=== PATIENT | female | born 2000 ===

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

== ENCOUNTER 2019-01-12 19:25 | Emergency (ER) | payer OTHER ==
[2019-01-12 19:32] VITALS: BP 115/76; PULSE 81; TEMP 98.3; BMI 19.8
--- NOTE | 2019-01-12 19:38 | PDOC ---
History of Present Illness - General Chief Complaint: Pain Stated Complaint: PAIN H/A, ABD, MUSCLES Time Seen by Provider: 01/12/19 19:29 History Source: Patient Exam Limitations: No Limitations - History of Present Illness Initial Comments: Francheska Salazar is a 18 yo F w no sig pmh who presents to the [place] [facility] with multiple complaints including left shoulder pain, left eye swelling, neck pain, and lower abdominal pain. Patient states her left eye has been midlyl swollen for the past two days. She thinks this is related to her lifting heavy weights at the gym 3 days ago. She also states something is swollen behind her left ear. She denies any discharge from her ear or her eye. The patient also states she has been in the [place] frequently and is worried that she might have lyme disease. Lastly, she endorses lower abdominal pain which is worst in the suprapubic and LLQ regions. She states this pain worsens when she runs or when she eats food. She denies radiation of the pain to her groin or back. Patient denies fevers, chills, dysuria, frequency, urgency, headache, neck pain , SOB, difficulty breathing, abnormal vaginal discharge, or hx of STD's LMP: 3 years ago. Patient takes OCP which prevents her from getting periods. - Patient is sexually active with 1 male partner and does not use condoms for protection. She had STD tests performed in May which she states were negative. PCP: Dr. Robbins Allergies: NKA, NKDA Social Hx: Denies smoking, drinking, or other substance usage. PSH: None reported Past History - Past Medical History Allergies/Adverse Reactions: Allergies Allergy/AdvReac Type Severity Reaction Status Date / Time No Known Allergies Allergy Verified 01/25/17 21:23 Home Medications: Ambulatory Orders Norethindrone-E.estradiol-Iron [Ogertdgg-Wnvzuy-Vkut 1-0.02 mg] 1 each PO DAILY 01/12/19 COPD: No - Immunization History Immunization Up to Date: Yes - Suicide/Smoking/Psychosocial Hx Smoking History: Never smoked Hx Alcohol Use: No Drug/Substance Use Hx: No Substance Use Type: None Review of Systems - Review of Systems Able to Perform ROS?: Yes Comments:: CONSTITUTIONAL: Absent: fever, chills, diaphoresis, generalized weakness, malaise, loss of appetite HEENT: Present: Eye swelling Absent: rhinorrhea, nasal congestion, throat pain, throat swelling, difficulty swallowing, mouth swelling, ear pain, eye pain, visual Changes CARDIOVASCULAR: Absent: chest pain, syncope, palpitations, irregular heart rate, lightheadedness , peripheral edema RESPIRATORY: Absent: cough, shortness of breath, dyspnea with exertion, orthopnea, wheezing, stridor, hemoptysis GASTROINTESTINAL: Present: Abdominal pain Absent: abdominal distension, nausea, vomiting, diarrhea, constipation, melena, hematochezia GENITOURINARY: Absent: dysuria, frequency, urgency, hesitancy, hematuria, flank pain, genital pain MUSCULOSKELETAL: Absent: myalgia, arthralgia, joint swelling SKIN: Absent: rash, itching, pallor HEMATOLOGIC/IMMUNOLOGIC: Absent: easy bleeding, easy bruising, lymphadenopathy, frequent infections ENDOCRINE: Absent: unexplained weight gain, unexplained weight loss, heat intolerance, cold intolerance NEUROLOGIC: Absent: headache, focal weakness or paresthesias, dizziness, unsteady gait, seizure, mental status changes, bladder or bowel incontinence PSYCHIATRIC: Absent: anxiety, depression, suicidal or homicidal ideation, hallucinations. *Physical Exam - Vital Signs Last Vital Signs Temp Pulse Resp BP Pulse Ox 98.3 F 81 16 115/76 100 01/12/19 19:26 01/12/19 19:26 01/12/19 19:26 01/12/19 19:26 01/12/19 19:26 - Physical Exam Comments: GENERAL: Well developed, well nourished. Awake and alert. No acute distress. HEENT: Normocephalic, atraumatic. PERRLA, EOMI. No conjunctival pallor. Sclera are non- icteric. Moist mucous membranes. Oropharynx is clear. NECK: There are multiple inflamed lymph nodes bilaterally in the patient's neck. Supple. Full ROM. No JVD. No thyromegaly. CARDIOVASCULAR: Regular rate and rhythm. No murmurs, rubs, or gallops. Distal pulses are 2+ and symmetric. PULMONARY: No evidence of respiratory distress. Lungs clear to auscultation bilaterally. No wheezing, rales or rhonchi. ABDOMINAL: There is suprapubic and LLQ TTP. Abdomen is still soft and non-distended. No rebound or guarding. No organomegaly. Normoactive bowel sounds. MUSCULOSKELETAL Normal range of motion at all joints. No bony deformities or tenderness. No CVA tenderness. EXTREMITIES: No cyanosis. No clubbing. No edema. No calf tenderness. SKIN: Warm and dry. Normal capillary refill. No rashes. No jaundice. NEUROLOGICAL: Alert, awake, appropriate. Cranial nerves 2-12 intact. No deficits to light touch in face, upper extremities and lower extremities. No motor deficits in the in face, upper extremities and lower extremities. Normal speech. Gait is normal without ataxia. PSYCHIATRIC: Cooperative. Good eye contact. Appropriate mood and affect. Female Pelvic Exam: positive: normal external exam, cervical os closed, normal adnexa, normal size ovaries, uterus. negative: CMT, discharge, lesions, Bartholin mass, Scalene Gland, adnexal tenderness, vaginal bleeding ED Treatment Course - LABORATORY CBC & Chemistry Diagram: 01/12/19 20:05 01/12/19 20:05 - RADIOLOGY Radiograph Interpretation: TVUS: HISTORY PROVIDED: Pelvic pain. Real time examination of the pelvis utilizing both the transabdominal and transvaginal probes demonstrates the following: The uterus is normal in size measuring 5.3 x 3.7 x 2.3 cm. No uterine masses are seen. A normal appearing endometrium of 1.3 mm thickness is identified. The right ovary is normal in size and texture with arterial flow documented to the ovary. Left ovary could not be identified. There is no evidence of adnexal masses. Free fluid is identified within the cul-de-sac and about the left adnexa. IMPRESSION: Free pelvic fluid, otherwise normal pelvic sonogram. Please see above discussion Medical Decision Making - Medical Decision Making Francheska Salazar is a 18 yo F w no sig pmh who presents to the [facility] ER with multiple complaints including left shoulder pain, left eye swelling, neck pain, and lower abdominal pain. Patient states her left eye has been midlyl swollen for the past two days. She thinks this is related to her lifting heavy weights at the gym 3 days ago. She also states something is swollen behind her left ear. She denies any discharge from her ear or her eye. The patient also states she has been in the [place] frequently and is worried that she might have lyme disease. Lastly, she endorses lower abdominal pain which is worst in the suprapubic and LLQ regions. She states this pain worsens when she runs or when she eats food. She denies radiation of the pain to her groin or back. Patient denies fevers, chills, dysuria, frequency, urgency, headache, neck pain , SOB, difficulty breathing, abnormal vaginal discharge, or hx of STD's Vital Signs Temp Pulse Resp BP Pulse Ox 98.3 F 81 16 115/76 100 01/12/19 19:26 01/12/19 19:26 01/12/19 19:26 01/12/19 19:26 01/12/19 19:26 DDx IBNLT: viral syndrome, mono, lyme disease, ehrlichia, babesiosis, , ovarian cyst vs torsion Plan: Labs, Urine, IV hydration, IV hydration, analgesia, re-assess. Labs: Leukocytosis with monocyte pre-dominance. Elevated LFT's. Urine: Trace ketonuria TVUS: Real time examination of the pelvis utilizing both the transabdominal and transvaginal probes demonstrates the following: The uterus is normal in size measuring 5.3 x 3.7 x 2.3 cm. No uterine masses are seen. A normal appearing endometrium of 1.3 mm thickness is identified. The right ovary is normal in size and texture with arterial flow documented to the ovary. Left ovary could not be identified. There is no evidence of adnexal masses. Free fluid is identified within the cul-de-sac and about the left adnexa. IMPRESSION: Free pelvic fluid, otherwise normal pelvic sonogram. Please see above discussion Re-assessment: Patient feels better after analgesia and IV hydration. She no longer has any acute distress and requests to be discharged. Disposition: Home with call back regarding test results. *DC/Admit/Observation/Transfer Diagnosis at time of Disposition: Viral syndrome, Mononucleosis, infectious, with hepatitis, Mononucleosis syndrome - Discharge Dispostion Disposition: HOME Condition at time of disposition: Improved Decision to Admit order: No - Referrals Referrals: Dheeraj Robbins MD [Primary Care Provider] - - Patient Instructions Printed Discharge Instructions: Mononucleosis, Lyme Disease Test, [place] Spot Test, DI for Lyme Disease Additional Instructions: You came into the ER with multiple complaints suspicious for some type of infection. We sent multiple blood tests which will take 4 to 5 days to result. You will get a call back once the results are in. Please make sure to call back the ER in 5 days from now if you have not heard from us. Please read the attached handouts about mononucleosis and lyme disease. Do your best not to engage in any contact sports. Come back to the ER immediately if your pain worsens, you get a high fever, start vomiting, or have any other new or worsening concerns. Thank you for coming to the [facility] ER. We hope you feel better soon! Print Language: MALAY - Post Discharge Activity
[2019-01-12] MEDS ORDERED: SODIUM CHLORIDE 1,000 ML IV STA (19:43)
[2019-01-12] MEDS ORDERED: ACETAMINOPHEN 325 MG TABLET (FP) PO ONE (19:46)
[2019-01-12] MEDS ORDERED: ACETAMINOPHEN 325 MG TABLET (FP) ONE (19:53)
[2019-01-12 20:18] LABS: HEMATOCRIT 39.3 % (32.4-45.2); HEMOGLOBIN 13.3 GM/dl (10.7-15.3); MCH 31.3 pg (25.7-33.7); MCHC 33.8 g/dl (32.0-36.0); MEAN CELL VOLUME 92.7 fl (80-96); MEAN PLT VOLUME 9.9 fl (7.5-11.1); PLATELET COUNT 182 K/MM3 (134-434); RBC 4.24 M/mm3 (3.60-5.2); RDW 11.6 % (11.6-15.6); WHITE BLOOD COUNT 13.8 K/mm3 (4.0-10.8)
[2019-01-12 20:28] LABS: PH,URINE 5.5 (4.5-8); URINE APPEARANCE SL CLOUDY; URINE BILIRUBIN 1+ (NEGATIVE); URINE COLOR YELLOW; URINE GLUCOSE (UA) NEGATIVE (NEGATIVE); URINE KETONE TRACE (NEGATIVE); URINE NITRITE NEGATIVE (NEGATIVE); URINE PROTEIN TRACE (NEGATIVE); URINE UROBILINOGEN 0.2 (0.2-1.0)
[2019-01-12 20:29] LABS: URINE LEUK ESTERASE NEGATIVE (NEGATIVE)
[2019-01-12 20:30] LABS: EPI CELLS FEW /HPF; URINE BACTERIA FEW /hpf (NEGATIVE)
[2019-01-12 20:32] LABS: ALBUMIN 3.6 g/dl (3.4-5.0); CALCIUM 8.8 mg/dl (8.5-10); CREATININE 0.7 mg/dl (0.55-1.3); POTASSIUM 3.7 mmol/L (3.5-5.1); TOT PROT 7.4 g/dl (6.4-8.2)
[2019-01-12 20:48] LABS: PLATELET ESTIMATE ADEQUATE
== END 2019-01-12 22:00 | disposition home or self-care (01) ==
LOC: FER 19:25
PROC: 3E0337Z Introduction of Electrolytic and Water Balance Substance into Peripheral Vein, Percutaneous Approach (ICD-10-PCS; principal; 2019-01-12)
DX: B27.99 Infectious mononucleosis, unspecified with other complication (principal); K75.9 Inflammatory liver disease, unspecified; B34.9 Viral infection, unspecified
CPT/HCPCS: 36415; 76830-TC; 80053; 81003; 83690; 84703; 85025; 86308; 86618; 86666; 86753; 87086; 99283-25; J7030

== ENCOUNTER 2019-01-13 14:10 | Emergency (ER) | payer OTHER ==
[2019-01-13 14:25] VITALS: BMI 20.7
--- NOTE | 2019-01-13 14:43 | PDOC ---
History of Present Illness - General Chief Complaint: Pain Stated Complaint: abdominal pain Time Seen by Provider: 01/13/19 14:36 History Source: Patient Exam Limitations: No Limitations - History of Present Illness Initial Comments: 01/13/19 14:37 18YOF without PMH who returns to the ED c/o LLQ and suprapubic abdominal pain. Pain is worse when she inhales deeply. She was seen in the ED yesterday with the same pain, had negative laboratory workup except for leukocytosis and monocytosis, MonoSpot was negative, and TVUS showing free pelvic fluid but otherwise wnl. She denies f/c/n/v, dysuria, frequency, urgency, hematuria, abnormal discharge, or h/o STI. LMP was about 3 years ago (she takes OCP that stopped her menstruation). Past History - Past Medical History Allergies/Adverse Reactions: Allergies Allergy/AdvReac Type Severity Reaction Status Date / Time No Known Allergies Allergy Verified 01/13/19 14:19 Home Medications: Ambulatory Orders Norethindrone-E.estradiol-Iron [Miuarbza-Urwibe-Asxk 1-0.02 mg] 1 each PO DAILY 01/12/19 COPD: No - Immunization History Immunization Up to Date: Yes - Suicide/Smoking/Psychosocial Hx Smoking History: Never smoked Hx Alcohol Use: No Drug/Substance Use Hx: No Substance Use Type: None Review of Systems - Review of Systems Able to Perform ROS?: Yes Comments:: 01/13/19 15:03 GEN: no fever, chills, malaise, generalized weakness, or weight change HEENT: no ear pain, sore throat, vision change, or eye pain CV: no chest pain, palpitations, lightheadedness, syncope, or edema RESP: no cough, wheezing, or SOB GI: abdominal pain, diarrhea, constipation, no nausea, vomiting, or white/black/ bloody stool : no dysuria, hematuria, incontinence, retention, bleeding, or discharge MSK: no neck/back pain, muscle weakness/pain, or joint swelling/pain NEURO: no headache, seizure, vertigo, numbness, tingling, or focal weakness PSYCH: no substance use, no behavior change SKIN: no jaundice, no rash ROS otherwise negative except as noted in HPI *Physical Exam - Vital Signs Last Vital Signs Temp Pulse Resp BP Pulse Ox 98 F 63 17 112/53 L 100 01/13/19 14:10 01/13/19 14:10 01/13/19 14:10 01/13/19 14:10 01/13/19 14:10 - Physical Exam Comments: 01/13/19 15:04 GENERAL: nontoxic-appearing, initially standing for H&P, A/Ox4, no distress, answers questions appropriately HEENT: PERRLA, EOMI, moist mucous membranes NECK/BACK: no midline ttp, no spinal stepoff or deformity, no hematoma, full ROM , neck supple CARDIOVASCULAR: regular rate/rhythm, normal S1S2, no MGR, strong peripheral pulses, capillary refill <2 seconds, extremities wwp, no edema LUNGS/RESPIRATORY: no respiratory distress, CTAB GI/ABDOMEN: symmetric [id number], normoactive BS, soft, mild epigastric and moderate left-sided and suprapubic ttp, no midline pulsatile masses : no CVA tenderness EXTREMITIES: no muscle atrophy, no acute deformity SKIN: warm and dry, no pallor, no jaundice, no rash, no bruising, no skin breakdown, no cuts, no lesions NEUROLOGICAL: GCS 15, CN II-XII grossly intact, 5/5 strength proximally and distally, no facial droop ED Treatment Course - LABORATORY CBC & Chemistry Diagram: 01/13/19 16:10 01/13/19 16:10 Medical Decision Making - Medical Decision Making 01/13/19 15:09 Adult female Pt p/w left-sided abdominal pain. VS: Exam: As noted in Physical Exam section. DDX IBNLT: UTI/pyelonephritis, diverticulitis wwo abscess or perforation, colitis, ovarian torsion, PID, TOA, ovarian cyst, malignancy, hernia, AAA/AD, pancreatitis, appendicitis, gastritis, PUD, ACS, renal colic, SBO, bowel ischemia, bowel perforation, cholecystitis, mesenteric adenitis, musculoskeletal , constipation, etc. W/U ordered: CBCD CMP UA UCx GC/Chlamydia/Trich MAGGIE US TX ordered: IVF, Ofirmev Unlikely UTI/pyelonephritis as Pt has no dysuria, strange colors/smells, no h/o recurrent UTI. Unlikely diverticulitis as Pt has no known h/o diverticulosis/diverticulitis. Unlikely colitis as clinically Pts abdomen is not distended/no ascites, no fever, other VS wnl. Unlikely ovarian torsion as Pt has no adnexal tenderness on bimanual exam, no known h/o ovarian cyst >5 cm. Unlikely PID, TOA as Pt denies h/o STIs, no report of abnormal discharge no adnexal tenderness, VS are wnl. Unlikely ovarian cyst as Pt denies h/o ovarian cysts, unlikely hemorrhagic as Pt denies sxs of anemia. Unlikely malignancy as Pt has no palpable mass, no reported recent B symptoms. Unlikely hernia as there is no outwardly palpable lump. Unlikely AAA/AD as no midline pulsatile mass or h/o AAA/AD, denies h/o HTN or connective tissue d/o. Unlikely pancreatitis as Pt denies EtOH use, h/o gallstones, no known hypercalcemia. Unlikely appendicitis as Pt has no fever, RLQ or umbilical abdominal pain, or anorexia. Unlikely gastritis as Pt denies h/o significant GERD, no overuse of EtOH. Unlikely PUD as Pt does not report relief of pain ~2 hours postprandially or with antacids. Unlikely ACS as Pt has few risk factors, no associated SOB or typical arm/neck radiation. Unlikely renal stone as Pt notes no clinical hematuria, has no CVA tenderness. Unlikely SBO as Pt has been passing stool and gas normally per their baseline. Unlikely mesenteric ischemia as Pt has no known A-fib or coagulopathy, no pain out of proportion. Unlikely bowel perforation as Pt does not appear to have acute abdomen, no peritoneal signs. Unlikely cholecystitis as no postprandial worsening. Causes of splenomegaly: SPLEEN -Sequestration (RBC defects) -Proliferation (hyperreactive lymphocyte generation from infection like EBV, or autoimmune process) -Lipid deposition (inborn error of metabolism like Gauchers, Neimann-Pick, amyloidosis, etc) -Endowment (e.g. cyst or congenital) -Engorgement (backup from portal HTN) -Neoplasm (mets or leukemia/lymphoma) US: Labs: Reassessment: Repeat VS: ADMIT The Pts symptoms persist despite ED treatments. The Pt is unsafe for discharge at this time. They require further hospital observation, workup, and treatment. Microblog sent to [facility] for admission.Blank Decision to Admit order is placed per ED protocol. Spoke with admitting team sales service representative, in agreement Pt to be admitted.Decision to Admit order corrected with admitting team covering attendings name. Decision to Admit order placed to admitting team covering attending. DISCHARGE This patient has gotten significant relief of symptoms while in the ED.On last reassessment, vitals are wnl, pain is reasonably controlled, and exam is benign.Workup is not concerning for emergency-level pathology at this time.This patient is appropriate for discharge with close outpatient follow up. She comfortable with this plan and will follow up with her primary care provider in 1-3 days. Specific return precautions are discussed and they will come back to the ER if necessary. *DC/Admit/Observation/Transfer Diagnosis at time of Disposition: Abdominal pain, Elevated LFTs, Splenomegaly, Leukocytosis - Discharge Dispostion Disposition: HOME Condition at time of disposition: Stable Decision to Admit order: No - Referrals - Patient Instructions Printed Discharge Instructions: DI for Abdominal Pain-Adult Additional Instructions: You were seen in the ER for abdominal pain. We did an exam, labs, an ultrasound , and a CT scan. You have slightly elevated liver function tests slightly elevated white blood cells, slightly enlarged spleen, and slightly enlarged liver. This may be due to a viral illness or early mononucleosis, but it is not possible for us to tell right now. However, after our assessment, we do not believe you are having a medical emergency at this time, and we believe you are safe to go home. Please follow up with your regular PCP early next week. Call their clinic, tell them you were seen in the ER, and tell them you need a follow -up. If you have any new or worsening symptoms, please come back to the ER at any time (24 hours a day). Especially come back to the ER if you have severe abdominal pain that will not go away, vomiting that will not go away, yellowing coloration of your skin or eyes, fever that you cannot control, or other issues. If you are having severe or life threatening symptoms, or symptoms that make it unsafe to drive or have someone drive you, please call 911. Do not exercise strenuously or play any contact sports until cleared by your doctor. Avoid Tylenol and take Motrin instead until you are cleared by your doctor. Drink plenty of fluids. - Post Discharge Activity
--- NOTE | 2019-01-13 15:00 | PDOC ---
Attending Attestation - Resident Resident Name: Malissa Banerjee - ED Attending Attestation I have performed the following: I have examined & evaluated the patient, The case was reviewed & discussed with the resident, I agree w/resident's findings & plan, Exceptions are as noted - HPI HPI: 01/13/19 15:00 18y F presents with nonradiating L sided abd pain whiel she was driving. pt was in the ED yesterday for evaluation for similar pain and some other sypmtmos. pt sates she has had persistent L abd pain since yesterday, but it worsened significantly when she was driving and had to cable puller. pt endroses feeling nauses, bloated, nauses witout vomiting. no associated cp, galvan, fever/chills. has had some watery stool in addition pt was here yesteday with similar complaintm, was GENERAL: The patient is awake, alert, and fully oriented, Nontoxic - in no acute distress. HEAD: Normocephalic, atraumatic. EYES: extraocular movements intact, sclera anicteric, conjunctiva clear. ENT: Normal voice, Moist mucous membranes. NECK: Normal range of motion, supple LUNGS: Breath sounds equal, clear to auscultation bilaterally. No wheezes, no rhonchi, no rales. HEART: Regular rate and rhythm, ABDOMEN: mild ttp to L mid abd, no ruq/rlq/llq ttp, no cva ttp, neg murphies, neg mcburnies EXTREMITIES: Normal range of motion, no edema. NEUROLOGICAL: No facial assymetry, Normal speech, PSYCH: Normal mood, normal affect. SKIN: Warm, Dry, normal turgor, 01/13/19 17:31 pts labs reviewed [facility] trending lower lfts bumped slightly from previous no RUQ pain though +splenomegaly/hepatomegaly on CT there was also some pericholecystic fluid, however, no focal RUQ ttp o suggest cholecystitis. ?possible viral syndrome vs mono (mono neg yesterday) will send hepatitis panel pt feeling improved eating popcorn here no acute distress will have pt fu with pmd to trend labs on wednesday01/13/19 17:33 - Physicial Exam PE: 01/14/19 17:04 see above - Medical Decision Making 01/14/19 17:05 see above
[2019-01-13 16:35] LABS: ALBUMIN 3.5 g/dl (3.4-5.0); BILIRUBIN,TOTAL 1.1 mg/dl (0.2-1); CALCIUM 8.9 mg/dl (8.5-10); CREATININE 0.8 mg/dl (0.55-1.3); HEMATOCRIT 39.4 % (32.4-45.2); HEMOGLOBIN 13.6 GM/dl (10.7-15.3); MCH 31.7 pg (25.7-33.7); MCHC 34.4 g/dl (32.0-36.0); MEAN CELL VOLUME 92.1 fl (80-96); MEAN PLT VOLUME 10.7 fl (7.5-11.1); PLATELET COUNT 176 K/MM3 (134-434); POTASSIUM 4.6 mmol/L (3.5-5.1); RBC 4.28 M/mm3 (3.60-5.2); RDW 11.9 % (11.6-15.6); TOT PROT 7.6 g/dl (6.4-8.2)
[2019-01-13 18:12] VITALS: BP 114/79; PULSE 82; TEMP 98.5
== END 2019-01-13 18:11 | disposition home or self-care (01) ==
LOC: FER 14:10
DX: R10.9 Unspecified abdominal pain (principal); R94.5 Abnormal results of liver function studies; R16.1 Splenomegaly, not elsewhere classified; D72.829 Elevated white blood cell count, unspecified
CPT/HCPCS: 36415; 74177-TC; 76830-TC; 80053; 80074; 81003; 81015; 83690; 84703; 85025; 87086; 99283-25